=== PATIENT | male | born 1985 | race Caucasian/White ===

== ENCOUNTER 2016-09-02 19:23 | Emergency (ER) | payer OTHER ==
[2016-09-02] MEDS ORDERED: HYDROmorphONE/DILAUDID 1 MG/ML SYR IVP ONE (19:39)
[2016-09-02] MEDS ORDERED: ONDANSETRON 4 MG/2 ML VIAL IVP ONE (19:39)
[2016-09-02] MEDS ORDERED: FAMOTIDINE 20 MG in NS 100 ML IV ONE (19:39)
[2016-09-02] MEDS ORDERED: NS 1,000 ML IV ONE ×2 (19:39→19:43)
[2016-09-02 19:43] VITALS: TEMP 98; O2SAT 95
[2016-09-02] MEDS ORDERED: IOPAMIDOL (ISOVUE-300) 50 ML VIAL IV ONE ×2 (19:48)
--- NOTE | 2016-09-02 19:48 | UCPHY ---
H & P Time Seen by Provider: 09/02/16 19:39 Patient Type: Established HPI/ROS: HPI Nausea vomiting, abdominal pain. 31-year-old male by private vehicle with his girlfriend. This patient reports that he has had fever on and off, muscle aches and joint aches, nausea and vomiting for 1 week. He was seen by his primary care physician today. He had a negative flu swab. He was noted to have right lower quadrant tenderness on palpation. He was sent home told to return to the Urgent Care if he got worse. He has been vomiting at home and he reports that his pain in his right lower abdomen has been worse tonight. Pain described as an aching and cramping sensation. He has not had any diarrhea. He has not had any solid food in over 30 hours. No abdominal surgical history. ROS: Constitutional: As above, no chills. No weakness. Eyes: No discharge. No changes in vision. ENT: No sore throat. No nasal congestion or rhinorrhea. Respiratory: No cough. No shortness of breath. Cardiac: No chest pain, no palpitations. Gastrointestinal: As above, no diarrhea. Genitourinary: No hematuria. No dysuria or increased frequency with urination. Musculoskeletal: No back pain. No neck pain. As above. Skin: No rashes. Neurological: No headache. No focal weakness or altered sensation. Past medical history: None. Social history: Here with his girlfriend. Physical Exam: General Appearance: Alert, no distress. This patient is responding to questions appropriately and in full sentences. This patient appears well- hydrated and well-nourished. Eyes: Pupils equal and round no pallor or injection. No lid edema, erythema or injection. Respiratory: There are no retractions, lungs are clear to auscultation with good air movement bilaterally. Cardiovascular: Regular rate and rhythm. No murmur. Gastrointestinal: Abdomen is soft mild to moderate right lower quadrant tenderness on palpation, no masses, bowel sounds normal. No focal tenderness at McBurney's point. No Irving sign. Neurological: Motor sensory function is grossly intact. Cranial nerves are normal. Gait is normal. Skin: Warm and dry, no rashes. Musculoskeletal: Neck is supple and nontender. Extremities are symmetrical. All joints range without pain or impingement. Psychiatric: No agitation. No depression. Database: EKG: Imaging: CT abdomen and pelvis with IV contrast: The appendix is well visualized and is normal. No other significant pathology. Study otherwise normal. Results were discussed with staff radiologist. Procedures: Emergency department course: IV placed. Patient placed on a quality assurance monitor chassis. He was started on IV normal saline with 2 L to be given over the next 2 hours. He was initially given 0.5 mg of IV hydromorphone, 4 mg of IV Zofran and 20 mg of IV Pepcid. Will be sent for CT imaging to evaluate for possible appendicitis. He endorses this plan. 9:00 p.m., patient re-evaluated. Resting comfortably at this time. Pain is well controlled. He has had no further vomiting in the emergency department. He is now tolerating oral fluids. Repeat abdominal exam is soft, nontender nondistended. Results of his CT scan were discussed with him and his girlfriend. He feels comfortable going home and I feel he is safe for discharge. Follow-up and return to emergency department precautions have been discussed with him. All of his questions were answered. He was discharged in good condition. I will prescribe him Zofran and Phenergan for nausea. Differential Diagnosis: The differential diagnosis on this patient includes but is not limited to appendicitis, colitis, viral enteritis, gastritis. Nephrolithiasis, cholecystitis, diverticulitis unlikely. This represents a partial list of diagnoses considered. These considerations are based on history, physical exam , past history, reassessment and diagnostic testing. Smoking Status: Never smoked Constitutional: Initial Vital Signs Temperature (C) 36.7 C 09/02/16 19:40 Heart Rate 111 H 09/02/16 19:40 Respiratory Rate 20 09/02/16 19:40 Blood Pressure 156/92 H 09/02/16 19:40 O2 Sat (%) 95 09/02/16 19:40 O2 Delivery Mode Nasal Cannula Allergies/Adverse Reactions: No Known Allergies Allergy (Verified 09/02/16 19:39) Home Medications: Medication Instructions Recorded Miscellaneous Medical Supply [NO 1 ea MISC AD 04/29/12 HOME MEDS] Ondansetron Odt [Zofran Odt 4 mg 4 mg PO Q4PRN PRN #10 tab 09/02/16 (*)] Medical Decision Making - Data Points Laboratory Results: Laboratory Results 09/02/16 19:50 09/02/16 19:50 09/02/16 09/02/16 21:25 19:50 WBC 8.86 10^3/uL (3.80-9.50) RBC 5.42 10^6/uL (4.40-6.38) Hgb 15.8 g/dL (13.7-17.5) Hct 46.0 % (40.0-51.0) MCV 84.9 fL (81.5-99.8) MCH 29.2 pg (27.9-34.1) MCHC 34.3 g/dL (32.4-36.7) RDW 12.3 % (11.5-15.2) Plt Count 416 H 10^3/uL (150-400) MPV 9.2 fL (8.7-11.7) Neut % (Auto) 59.6 % (39.3-74.2) Lymph % (Auto) 30.2 % (15.0-45.0) Rogers % (Auto) 8.5 % (4.5-13.0) Eos % (Auto) 1.1 % (0.6-7.6) Baso % (Auto) 0.3 % (0.3-1.7) Nucleat RBC Rel Count 0.0 % (0.0-0.2) Absolute Neuts (auto) 5.27 10^3/uL (1.70-6.50) Absolute Lymphs (auto) 2.68 10^3/uL (1.00-3.00) Absolute Monos (auto) 0.75 10^3/uL (0.30-0.80) Absolute Eos (auto) 0.10 10^3/uL (0.03-0.40) Absolute Basos (auto) 0.03 10^3/uL (0.02-0.10) Absolute Nucleated RBC 0.00 10^3/uL (0-0.01) Immature Gran % 0.3 % (0.0-1.1) Immature Gran # 0.03 10^3/uL (0.00-0.10) Sodium 140 mEq/L (134-144) Potassium 4.1 mEq/L (3.5-5.2) Chloride 103 mEq/L (97-110) Carbon Dioxide 24 mEq/l (22-31) Anion Gap 13 mEq/L (8-16) BUN 12 mg/dL (7-23) Creatinine 0.8 mg/dL (0.7-1.3) Estimated GFR > 60 Glucose 96 mg/dL (70-100) Calcium 9.8 mg/dL (8.5-10.4) Urine Color YELLOW Urine Appearance CLEAR Urine pH 7.0 (5.0-7.5) Ur Specific Mason 1.010 (1.002-1.030) Urine Protein NEGATIVE (NEGATIVE) Urine Ketones NEGATIVE (NEGATIVE) Urine Blood NEGATIVE (NEGATIVE) Urine Nitrate NEGATIVE (NEGATIVE) Urine Bilirubin NEGATIVE (NEGATIVE) Urine Urobilinogen 0.2 EU (0.2-1.0) Ur Leukocyte Esterase NEGATIVE (NEGATIVE) Ur Culture Indicated? NOT INDICATED (NI) Urine Glucose NEGATIVE (NEGATIVE) Medications Given: Discontinued Medications Hydromorphone HCl (Dilaudid) 0.5 mg IVP EDNOW ONE Stop: 09/02/16 19:40 Last Admin: 09/02/16 20:00 Dose: 0.5 mg Sodium Chloride (Ns) 1,000 mls @ 0 mls/hr IV ONCE ONE PRN Reason: Wide Open Stop: 09/02/16 19:40 Last Admin: 09/02/16 19:40 Dose: 1,000 mls Famotidine 20 mg/ Sodium (Chloride) 102 mls @ 408 mls/hr IV EDNOW ONE Stop: 09/02/16 19:53 Last Admin: 09/02/16 19:45 Dose: 102 mls Sodium Chloride (Ns) 1,000 mls @ 0 mls/hr IV ONCE ONE PRN Reason: Wide Open Stop: 09/02/16 19:44 Last Admin: 09/02/16 21:47 Dose: Not Given Ondansetron HCl (Zofran) 4 mg IVP EDNOW ONE Stop: 09/02/16 19:40 Last Admin: 09/02/16 19:40 Dose: 4 mg Ondansetron HCl (Zofran Odt 4 Mg Prepack#2) 1 btl TAKEHOME EDNOW ONE Stop: 09/02/16 21:04 Last Admin: 09/02/16 21:39 Dose: 1 btl Promethazine HCl (Phenergan 25 Mg Prepack #4) 1 btl TAKEHOME EDNOW ONE Stop: 09/02/16 21:04 Last Admin: 09/02/16 21:39 Dose: 1 btl Departure - Departure Disposition: Home, Routine, Self-Care Clinical Impression: Vomiting, Lower abdominal pain Condition: Good Instructions: Acute Nausea and Vomiting (ED) Additional Instructions: Read and follow provided instructions. Follow-up with your primary care physician in 1-2 days for re-evaluation. Take medication as prescribed only. Return to the emergency department for worsening abdominal pain, fever, vomiting and inability to keep fluids down despite medications or other serious concerns. Referrals: Louisa Rojas MD [Primary Care Provider] - As per Instructions Prescriptions: Ondansetron Odt [Zofran Odt 4 mg (*)] 4 mg PO Q4PRN PRN #10 tab PRN Reason: For Nausea & Vomiting - PQRS PQRS Measurement: Not applicable.
[2016-09-02 19:55] LABS: % IMMATURE GRANULYOCYTES 0.3 % (0.0-1.1); ABSOLUTE IMMATURE GRANULOCYTES 0.03 10^3/uL (0.00-0.10); ADD DIFF? NO; ADD MORPH? NO; ADD SCAN? NO; ATYPICAL LYMPHOCYTE FLAG 60 (0-99); FRAGMENT RBC FLAG 0 (0-99); HEMOGLOBIN 15.8 g/dL (13.7-17.5); LEFT SHIFT FLG 0 (0-99); LIPEMIA HEMOLYSIS FLAG 90 (0-99); MEAN CELL HEMOGLOBIN 29.2 pg (27.9-34.1); MEAN CELL HEMOGLOBIN CONCENTR. 34.3 g/dL (32.4-36.7); MEAN CELL VOLUME 84.9 fL (81.5-99.8); MEAN PLATELET VOLUME 9.2 fL (8.7-11.7); PLATELET CLUMPS FLAG 0 (0-99); PLATELET COUNT 416 10^3/uL (150-400); RED BLOOD CELL COUNT 5.42 10^6/uL (4.40-6.38); RED CELL DISTRIBUTION WIDTH 12.3 % (11.5-15.2)
[2016-09-02] MEDS ORDERED: ONDANSETRON 4 MG/2 ML VIAL ONE (20:06)
[2016-09-02 20:09] LABS: ANION GAP 13 mEq/L (8-16); CALCIUM 9.8 mg/dL (8.5-10.4); CARBON DIOXIDE 24 mEq/l (22-31); CHLORIDE 103 mEq/L (97-110); CREATININE 0.8 mg/dL (0.7-1.3); GLOMERULAR FILTRATION RATE > 60; GLUCOSE 96 mg/dL (70-100); POTASSIUM 4.1 mEq/L (3.5-5.2); SODIUM 140 mEq/L (134-144)
[2016-09-02] MEDS ORDERED: PROMETHAZINE 25 MG PREPACK #4 BTL TAKEHOME ONE (21:03)
[2016-09-02] MEDS ORDERED: ONDANSETRON 4MG PREPACK#2 BTL TAKEHOME ONE (21:03)
--- NOTE | 2016-09-02 21:16 | CT ---
CT Scan of the Abdomen and Pelvis (With Contrast) 2028 hours History: Abdominal pain, fever. Technique: Axial computed tomographic images of the abdomen and pelvis were obtained, with the uneve ntful intravenous administration of 90 mL Isovue-300 contrast. No oral or rectal contrast, which michel its the study. Dose reduction techniques were utilized. CT Abdomen Findings: Lung bases: Normal. Liver: 1.5-cm probable hemangioma in the right lobe of the liver, image #121 of series #3. Biliary system: No obstruction. Spleen: Normal. Pancreas: Normal. Adrenals: Normal. Kidneys: No obstruction or solid masses. Abdominal Aorta: No aneurysm. No bowel obstruction, ascites, or significant retroperitoneal lymphadenopathy. CT Pelvis Findings: Appendix appears normal, without inflammatory changes. Impressions 1. Probable 1.5-cm hepatic hemangioma. 2. No CT evidence of appendicitis, abscess, or bowel obstruction. Findings and recommendations discussed with Emergency Department physician, Dr. Patel, at 2055 hours on September 02, 2016. Final report concurs with initial preliminary interpretation.
[2016-09-02 21:31] LABS: COLOR YELLOW; LEUKOCYTE ESTERASE,URINE NEGATIVE (NEGATIVE); NITRITE,URINE NEGATIVE (NEGATIVE)
[2016-09-02 21:48] VITALS: BP 141/78; PULSE 92; RESP 18
== END 2016-09-02 21:47 | disposition home or self-care (01) ==
LOC: CED 19:23
DX: R10.31 Right lower quadrant pain (principal); R11.10 Vomiting, unspecified
CPT/HCPCS: 74177-PO; 80048-PO; 81003-PO; 85025-PO; 96361-PO; 96365-PO; 96375-PO; 99215-PO; G0463-PO; J1170; J2405; Q9967

== ENCOUNTER → 2017-03-21 | Outpatient (CLI) | payer OTHER | LOC: FLAB 15:55 → EDSTATUS 16:11 → FIMAGING 16:12 | PROVIDERS: ATTEND Physician Assistant | DX: M54.5 Low back pain (principal) ==

== ENCOUNTER → 2017-05-10 | Outpatient (CLI) | payer OTHER | LOC: FIMAGING 10:13 | PROVIDERS: ATTEND Family Medicine Sports Medicine | DX: M51.37 Other intervertebral disc degeneration, lumbosacral region (principal); M51.36 Other intervertebral disc degeneration, lumbar region; M51.27 Other intervertebral disc displacement, lumbosacral region; M51.26 Other intervertebral disc displacement, lumbar region ==